=== PATIENT | female | born 1945 | race Caucasian/White ===

== ENCOUNTER 2017-08-27 01:35 | Inpatient (IN) | payer MEDICARE ==
[~2017-08-27] VITALS: Ht 167.6 cm; Wt 79.7 kg
[2017-08-27 02:10] LABS: BASOPHILS 0.5 % (0-2); EOSINOPHILS 7.6 % (0-7); HEMATOCRIT 45.1 % (36.0-48.0); HEMOGLOBIN 15.7 g/dL (12-16); IMMATURE GRANULOCYTES 0.3 % (0-5); LYMPHOCYTES 33.3 % (15-50); MCH 32.2 pg (26.0-34.0); MCHC 34.8 g/dL (31.0-37.0); MCV 92.6 fL (80.0-100.0); MEAN PLATELET VOLUME 9.5 fL (7.4-10.4); MONOCYTES 11.3 % (2-11); PLATELET COUNT 322 10x3/uL (130-400); RBC 4.87 10x6/uL (4.00-5.40); RDW 13.3 % (11.5-14.5); WBC 11.2 10x3/uL (4.8-10.8)
[2017-08-27 02:28] LABS: ALBUMIN 3.4 g/dL (3.4-5.0); ALKALINE PHOSPHATASE 82 U/L (46-116); ALT (SGPT) 19 U/L (10-68); CALC OSMOLALITY 260 mosm/kg (275-300); CALCIUM 8.7 mg/dL (8.5-10.1); CARBON DIOXIDE 26.6 mmol/L (21.0-32.0); CHLORIDE - SERUM 97 mmol/L (98-107); CREATININE - SERUM 0.6 mg/dL (0.6-1.3); GLUCOSE 90 mg/dL (74-106); PROTEIN - SERUM 7.8 g/dL (6.4-8.2); SODIUM 130 mmol/L (136-145); TROPONIN-I < 0.017 ng/mL (0.000-0.060); UREA NITROGEN 13 mg/dL (7-18); eGFR NON AFRICAN AMERICAN > 90 mL/min (90-120)
[2017-08-27] MEDS ORDERED: MYSOLINE 50 MG50 MG PO (07:50)
[2017-08-27] MEDS ORDERED: CELEXA40 MG PO (07:54)
[2017-08-27] MEDS ORDERED: AMBIEN10 MG PO (07:56)
[2017-08-27] MEDS ORDERED: KLONOPIN1 MG PO (07:58)
[2017-08-27] MEDS ORDERED: TESSALON PERLE100 MG PO (08:00)
[2017-08-27] MEDS ORDERED: HYDROCODONE-APA1 TAB PO (08:01)
[2017-08-27] MEDS ORDERED: MUCINEX600 MG PO (08:03)
[2017-08-27] MEDS ORDERED: PHENERGAN25 M1 PO (08:07)
[2017-08-27 08:44] VITALS: BP 125/72; BMI 28.0
[2017-08-27 12:29] VITALS: BP 151/83
[2017-08-27 15:09] VITALS: BP 108/68
[2017-08-27 15:16] VITALS: Ht 167.6 cm; Wt 79.7 kg
[2017-08-27 20:00] VITALS: BP 125/61
[2017-08-28 04:00] VITALS: BP 128/65
[2017-08-28 05:59] LABS: BASOPHILS 0.1 % (0-2); EOSINOPHILS 0.1 % (0-7); HEMATOCRIT 38.2 % (36.0-48.0); IMMATURE GRANULOCYTES 0.4 % (0-5); LYMPHOCYTES 10.4 % (15-50); MCH 31.6 pg (26.0-34.0); MCV 92.7 fL (80.0-100.0); MEAN PLATELET VOLUME 9.4 fL (7.4-10.4); MONOCYTES 7.3 % (2-11); NEUTROPHILS 81.7 % (40-80); PLATELET COUNT 263 10x3/uL (130-400); RBC 4.12 10x6/uL (4.00-5.40); RDW 13.4 % (11.5-14.5)
[2017-08-28 06:02] LABS: WBC 15.8 10x3/uL (4.8-10.8)
[2017-08-28 06:22] LABS: ANION GAP 15.3 mmol/L (8-16); CALCIUM 8.3 mg/dL (8.5-10.1); POTASSIUM - SERUM 4.2 mmol/L (3.5-5.1)
[2017-08-28 06:23] LABS: CARBON DIOXIDE 19.9 mmol/L (21.0-32.0); CREATININE - SERUM 0.8 mg/dL (0.6-1.3)
[2017-08-28 09:19] VITALS: BP 126/64
[2017-08-28 13:05] VITALS: BP 144/62
[2017-08-28 16:04] VITALS: BP 131/54
[2017-08-28 20:00] VITALS: BP 133/67
[2017-08-29 04:00] VITALS: BP 109/67
[2017-08-29 05:36] LABS: BASOPHILS 0.1 % (0-2); EOSINOPHILS 0.3 % (0-7); HEMATOCRIT 38.4 % (36.0-48.0); IMMATURE GRANULOCYTES 0.3 % (0-5); LYMPHOCYTES 17.1 % (15-50); MCH 31.2 pg (26.0-34.0); MCHC 33.9 g/dL (31.0-37.0); MCV 92.1 fL (80.0-100.0); MEAN PLATELET VOLUME 9.5 fL (7.4-10.4); MONOCYTES 5.9 % (2-11); NEUTROPHILS 76.3 % (40-80); PLATELET COUNT 267 10x3/uL (130-400); RBC 4.17 10x6/uL (4.00-5.40); RDW 13.6 % (11.5-14.5); WBC 16.1 10x3/uL (4.8-10.8)
[2017-08-29 05:52] LABS: ANION GAP 16.1 mmol/L (8-16); CALCIUM 8.6 mg/dL (8.5-10.1); CARBON DIOXIDE 22.8 mmol/L (21.0-32.0); CREATININE - SERUM 0.8 mg/dL (0.6-1.3); POTASSIUM - SERUM 3.9 mmol/L (3.5-5.1)
[2017-08-29 10:15] VITALS: BP 137/72
[2017-08-29 12:35] VITALS: BP 146/68
[2017-08-29 16:19] VITALS: BP 106/63
[2017-08-29 20:00] VITALS: BP 118/62
[2017-08-30 04:00] VITALS: BP 127/71
[2017-08-30 04:03] LABS: BASOPHILS 0.2 % (0-2); EOSINOPHILS 1.6 % (0-7); HEMOGLOBIN 12.2 g/dL (12-16); IMMATURE GRANULOCYTES 0.3 % (0-5); LYMPHOCYTES 35.8 % (15-50); MCH 31.2 pg (26.0-34.0); MCHC 33.9 g/dL (31.0-37.0); MCV 92.1 fL (80.0-100.0); MEAN PLATELET VOLUME 8.9 fL (7.4-10.4); MONOCYTES 9.1 % (2-11); PLATELET COUNT 236 10x3/uL (130-400); RBC 3.91 10x6/uL (4.00-5.40); RDW 13.7 % (11.5-14.5); WBC 12.4 10x3/uL (4.8-10.8)
[2017-08-30 04:10] LABS: ANION GAP 10.9 mmol/L (8-16); CALCIUM 8.1 mg/dL (8.5-10.1); CARBON DIOXIDE 28.4 mmol/L (21.0-32.0); CREATININE - SERUM 0.8 mg/dL (0.6-1.3)
[2017-08-30 04:15] LABS: POTASSIUM - SERUM 3.3 mmol/L (3.5-5.1)
[2017-08-30 09:09] VITALS: BP 140/83
[2017-08-30 14:53] VITALS: BP 161/72
[2017-08-30] MEDS ORDERED: TUSSIONEX PENN473 ML PO (15:03)
[2017-08-30] MEDS ORDERED: PREDNISONE10 MG PO (15:43)
[2017-08-30] MEDS ORDERED: LEVAQUIN500 MG PO (15:44)
[2017-08-30 16:39] VITALS: BP 130/85
== END 2017-08-30 17:53 | disposition home or self-care (01) | DRG 202 ==
LOC: D.ER 01:35 → D.EDHOLD 02:30 → D.M2 02:30
PROVIDERS: Emergency Medicine; Family Medicine Adult Medicine
DX: J20.9 Acute bronchitis, unspecified (principal); J44.1 Chronic obstructive pulmonary disease with (acute) exacerbation; J44.0 Chronic obstructive pulmonary disease with (acute) lower respiratory infection; G62.9 Polyneuropathy, unspecified

== ENCOUNTER 2017-09-23 18:13 | Inpatient (IN) | payer MEDICARE ==
[~2017-09-23] VITALS: Ht 167.6 cm; Wt 80.8 kg
[~2017-09-23 18:13] MED LIST: AMBIEN10 MG PO; CELEXA40 MG PO; HYDROCODONE-APA1 TAB PO; KLONOPIN1 MG PO; LEVAQUIN500 MG PO; MUCINEX600 MG PO; MYSOLINE 50 MG50 MG PO; PHENERGAN25 M1 PO; PREDNISONE10 MG PO; TESSALON PERLE100 MG PO; TUSSIONEX PENN473 ML PO
[2017-09-23 18:59] LABS: BASOPHILS 0.8 % (0-2); EOSINOPHILS 10.9 % (0-7); HEMATOCRIT 42.6 % (36.0-48.0); HEMOGLOBIN 14.8 g/dL (12-16); IMMATURE GRANULOCYTES 0.3 % (0-5); LYMPHOCYTES 37.1 % (15-50); MCH 32.5 pg (26.0-34.0); MCHC 34.7 g/dL (31.0-37.0); MCV 93.4 fL (80.0-100.0); MEAN PLATELET VOLUME 9.2 fL (7.4-10.4); MONOCYTES 9.6 % (2-11); NEUTROPHILS 41.3 % (40-80); PLATELET COUNT 265 10x3/uL (130-400); RBC 4.56 10x6/uL (4.00-5.40); RDW 13.9 % (11.5-14.5); WBC 7.5 10x3/uL (4.8-10.8)
[2017-09-23 19:15] LABS: ALBUMIN 3.5 g/dL (3.4-5.0); ALKALINE PHOSPHATASE 67 U/L (46-116); ALT (SGPT) 19 U/L (10-68); BILIRUBIN - TOTAL 0.38 mg/dL (0.2-1.3); CALC OSMOLALITY 271 mosm/kg (275-300); CALCIUM 8.8 mg/dL (8.5-10.1); CARBON DIOXIDE 26.6 mmol/L (21.0-32.0); CHLORIDE - SERUM 102 mmol/L (98-107); CREATININE - SERUM 0.7 mg/dL (0.6-1.3); GLUCOSE 91 mg/dL (74-106); POTASSIUM - SERUM 4.2 mmol/L (3.5-5.1); PROTEIN - SERUM 7.4 g/dL (6.4-8.2); SODIUM 137 mmol/L (136-145); UREA NITROGEN 6 mg/dL (7-18); eGFR NON AFRICAN AMERICAN 87 mL/min (90-120)
[2017-09-23 19:22] LABS: PRO BNP 139 pg/mL (0-125)
[2017-09-23 19:23] LABS: TROPONIN-I < 0.017 ng/mL (0.000-0.060)
[2017-09-24] MEDS ORDERED: INDERAL10 MG PO (02:55)
[2017-09-24 03:59] VITALS: BP 153/83; BMI 28.3
[2017-09-24 08:36] VITALS: BP 121/70
[2017-09-24 11:52] VITALS: BP 131/73
[2017-09-24 13:12] VITALS: Ht 167.6 cm; Wt 80.8 kg
[2017-09-24 15:40] VITALS: BP 138/76
[2017-09-24 20:37] VITALS: BP 107/57
[2017-09-25 00:46] VITALS: BP 107/57; BP 122/77
[2017-09-25 05:50] VITALS: BP 111/67
[2017-09-25 06:34] LABS: BASOPHILS 0.1 % (0-2); EOSINOPHILS 0.2 % (0-7); HEMATOCRIT 37.9 % (36.0-48.0); HEMOGLOBIN 12.8 g/dL (12-16); IMMATURE GRANULOCYTES 0.3 % (0-5); MCH 31.6 pg (26.0-34.0); MCHC 33.8 g/dL (31.0-37.0); MCV 93.6 fL (80.0-100.0); MEAN PLATELET VOLUME 9.5 fL (7.4-10.4); MONOCYTES 4.2 % (2-11); NEUTROPHILS 85.2 % (40-80); PLATELET COUNT 304 10x3/uL (130-400); RBC 4.05 10x6/uL (4.00-5.40)
[2017-09-25 06:39] LABS: WBC 11.9 10x3/uL (4.8-10.8)
[2017-09-25 07:12] LABS: ANION GAP 12.6 mmol/L (8-16); BILIRUBIN - TOTAL 0.2 mg/dL (0.2-1.3); CALCIUM 8.9 mg/dL (8.5-10.1); CREATININE - SERUM 0.8 mg/dL (0.6-1.3); POTASSIUM - SERUM 4.6 mmol/L (3.5-5.1); PROTEIN - SERUM 6.6 g/dL (6.4-8.2)
[2017-09-25 07:55] VITALS: BP 127/75
[2017-09-25 11:37] VITALS: BP 141/80
[2017-09-25 15:35] VITALS: BP 134/74
[2017-09-25 19:00] VITALS: BP 127/68
[2017-09-26] VITALS: BP 118/77
[2017-09-26 04:00] VITALS: BP 122/72
[2017-09-26 06:33] LABS: BASOPHILS 0.1 % (0-2); EOSINOPHILS 0.1 % (0-7); HEMATOCRIT 37.3 % (36.0-48.0); HEMOGLOBIN 12.4 g/dL (12-16); IMMATURE GRANULOCYTES 0.3 % (0-5); LYMPHOCYTES 12.5 % (15-50); MCH 31.2 pg (26.0-34.0); MCHC 33.2 g/dL (31.0-37.0); MEAN PLATELET VOLUME 9.5 fL (7.4-10.4); MONOCYTES 5.7 % (2-11); NEUTROPHILS 81.3 % (40-80); PLATELET COUNT 271 10x3/uL (130-400); RBC 3.97 10x6/uL (4.00-5.40); RDW 14.2 % (11.5-14.5); WBC 11.8 10x3/uL (4.8-10.8)
[2017-09-26 06:54] LABS: ALBUMIN 2.9 g/dL (3.4-5.0); ALKALINE PHOSPHATASE 59 U/L (46-116); ALT (SGPT) 17 U/L (10-68); BILIRUBIN - TOTAL 0.18 mg/dL (0.2-1.3); CALC OSMOLALITY 271 mosm/kg (275-300); CALCIUM 8.5 mg/dL (8.5-10.1); CHLORIDE - SERUM 101 mmol/L (98-107); CREATININE - SERUM 0.7 mg/dL (0.6-1.3); GLUCOSE 123 mg/dL (74-106); POTASSIUM - SERUM 4.4 mmol/L (3.5-5.1); PROTEIN - SERUM 6.4 g/dL (6.4-8.2); SODIUM 135 mmol/L (136-145); UREA NITROGEN 15 mg/dL (7-18); eGFR NON AFRICAN AMERICAN 87 mL/min (90-120)
[2017-09-26 08:52] VITALS: BP 134/72
[2017-09-26 10:53] LABS: IMMUNOGLOBULIN A 225 mg/dL (64-422); IMMUNOGLOBULIN G 644 mg/dL (700-1600)
[2017-09-26 11:35] VITALS: BP 131/76
[2017-09-26 16:21] VITALS: BP 139/77
[2017-09-26 20:59] VITALS: BP 131/70
[2017-09-27 02:21] VITALS: BP 128/79
[2017-09-27 05:54] LABS: BASOPHILS 0.1 % (0-2); EOSINOPHILS 0.1 % (0-7); HEMATOCRIT 36.4 % (36.0-48.0); HEMOGLOBIN 12.2 g/dL (12-16); IMMATURE GRANULOCYTES 0.6 % (0-5); LYMPHOCYTES 20.3 % (15-50); MCH 31.6 pg (26.0-34.0); MCHC 33.5 g/dL (31.0-37.0); MCV 94.3 fL (80.0-100.0); MEAN PLATELET VOLUME 9.3 fL (7.4-10.4); MONOCYTES 8.1 % (2-11); NEUTROPHILS 70.8 % (40-80); PLATELET COUNT 251 10x3/uL (130-400); RBC 3.86 10x6/uL (4.00-5.40); RDW 14.4 % (11.5-14.5); WBC 9.7 10x3/uL (4.8-10.8)
[2017-09-27 06:13] VITALS: BP 105/68
[2017-09-27 06:13] LABS: ALBUMIN 2.6 g/dL (3.4-5.0); BILIRUBIN - TOTAL 0.2 mg/dL (0.2-1.3); CALCIUM 8.5 mg/dL (8.5-10.1); CARBON DIOXIDE 29.3 mmol/L (21.0-32.0); CREATININE - SERUM 0.8 mg/dL (0.6-1.3); POTASSIUM - SERUM 4.3 mmol/L (3.5-5.1); PROTEIN - SERUM 5.9 g/dL (6.4-8.2)
[2017-09-27 08:15] VITALS: BP 137/76
[2017-09-27 11:53] VITALS: BP 132/81
[2017-09-27 15:46] VITALS: BP 130/73
[2017-09-27 21:22] VITALS: BP 132/67
[2017-09-28 01:10] VITALS: BP 121/67
[2017-09-28 04:41] LABS: BASOPHILS 0.2 % (0-2); EOSINOPHILS 0.4 % (0-7); HEMATOCRIT 36.1 % (36.0-48.0); HEMOGLOBIN 12.3 g/dL (12-16); IMMATURE GRANULOCYTES 1.4 % (0-5); LYMPHOCYTES 23.3 % (15-50); MCH 31.9 pg (26.0-34.0); MCHC 34.1 g/dL (31.0-37.0); MCV 93.5 fL (80.0-100.0); MEAN PLATELET VOLUME 9.3 fL (7.4-10.4); MONOCYTES 8.9 % (2-11); NEUTROPHILS 65.8 % (40-80); PLATELET COUNT 258 10x3/uL (130-400); RBC 3.86 10x6/uL (4.00-5.40); RDW 14.2 % (11.5-14.5); WBC 10.3 10x3/uL (4.8-10.8)
[2017-09-28 05:01] LABS: ALBUMIN 2.6 g/dL (3.4-5.0); BILIRUBIN - TOTAL 0.2 mg/dL (0.2-1.3); CALCIUM 8.4 mg/dL (8.5-10.1); CARBON DIOXIDE 29.4 mmol/L (21.0-32.0); CREATININE - SERUM 0.8 mg/dL (0.6-1.3); PROTEIN - SERUM 5.9 g/dL (6.4-8.2)
[2017-09-28 05:09] VITALS: BP 129/75
[2017-09-28 05:15] LABS: ANION GAP 8.9 mmol/L (8-16); POTASSIUM - SERUM 4.3 mmol/L (3.5-5.1)
[2017-09-28 09:42] VITALS: BP 116/67
[2017-09-28 12:39] VITALS: BP 124/69
[2017-09-28] MEDS ORDERED: NICODERM C1 PATCH .3 TRANSDERM (16:40)
[2017-09-28 16:41] VITALS: BP 120/60
[2017-09-28] MEDS ORDERED: PREDNISONE20 MG PO (16:42)
[2017-09-28] MEDS ORDERED: FLUTICASONE PRO16 GM NASAL (16:44)
[2017-09-28] MEDS ORDERED: LEVAQUIN500 MG PO (16:45)
[2017-10-02 07:34] LABS: IMMUNOGLOBULIN E 33 IU/mL (0-100)
== END 2017-09-28 18:30 | disposition home or self-care (01) | DRG 189 ==
LOC: D.ER 18:13 → D.M2 09-24 00:10 → D.EDHOLD 09-24 00:10 → D.M2 09-24 01:22
PROVIDERS: Family Medicine; Internal Medicine Pulmonary Disease
DX: J96.21 Acute and chronic respiratory failure with hypoxia (principal); J44.1 Chronic obstructive pulmonary disease with (acute) exacerbation; J44.0 Chronic obstructive pulmonary disease with (acute) lower respiratory infection; F17.203 Nicotine dependence unspecified, with withdrawal; J20.9 Acute bronchitis, unspecified; K21.9 Gastro-esophageal reflux disease without esophagitis; J32.9 Chronic sinusitis, unspecified; J30.9 Allergic rhinitis, unspecified; E78.5 Hyperlipidemia, unspecified; K58.9 Irritable bowel syndrome, unspecified; G60.3 Idiopathic progressive neuropathy; Z86.73 Personal history of transient ischemic attack (TIA), and cerebral infarction without residual deficits

== ENCOUNTER → 2018-02-09 09:58 | Outpatient (CLI) | payer MEDICARE ==
[2017-09-24 13:12] VITALS: BMI 28.2
[~2018-02-09 09:58] MED LIST changes: +ANORO ELLIPTA1 EACH INH; +CYCLOBENZAPRINE10 MG PO; +ELLIPTA; +FLUTICASONE PRO16 GM NASAL; +IPRAT-ALBUT 0.5-3 ML UPD; +NICODERM C1 PATCH .3 TRANSDERM; +PREDNISONE20 MG PO; +PROPRANOLOL HCL20 MG PO; +SINGULAIR10 MG PO; +TRELEGY AER ELL
== END | disposition home or self-care (01) ==
LOC: D.RT 02-02 13:00
DX: J44.9 Chronic obstructive pulmonary disease, unspecified (principal)

== ENCOUNTER 2018-02-25 12:17 | Inpatient (IN) | payer MEDICARE ==
[~2018-02-25] VITALS: Ht 167.6 cm; Wt 79.5 kg
[~2018-02-25 12:17] MED LIST changes: -ANORO ELLIPTA1 EACH INH; -CYCLOBENZAPRINE10 MG PO; -ELLIPTA; -IPRAT-ALBUT 0.5-3 ML UPD; -SINGULAIR10 MG PO; -TRELEGY AER ELL
[2018-02-25] MEDS ORDERED: SINGULAIR10 MG PO (13:06)
[2018-02-25] MEDS ORDERED: ELLIPTA (13:07)
[2018-02-25 14:03] LABS: BASOPHILS 0.4 % (0-2); EOSINOPHILS 3.5 % (0-7); HEMATOCRIT 41.1 % (36.0-48.0); IMMATURE GRANULOCYTES 0.2 % (0-5); LYMPHOCYTES 21.9 % (15-50); MCH 31.9 pg (26.0-34.0); MCHC 34.1 g/dL (31.0-37.0); MCV 93.6 fL (80.0-100.0); MEAN PLATELET VOLUME 9.6 fL (7.4-10.4); MONOCYTES 8.8 % (2-11); NEUTROPHILS 65.2 % (40-80); PLATELET COUNT 283 10x3/uL (130-400); RBC 4.39 10x6/uL (4.00-5.40); RDW 13.5 % (11.5-14.5); WBC 11.2 10x3/uL (4.8-10.8)
[2018-02-25 14:26] LABS: ALBUMIN 3.4 g/dL (3.4-5.0); ANION GAP 14.2 mmol/L (8-16); BILIRUBIN - TOTAL 0.4 mg/dL (0.2-1.3); CARBON DIOXIDE 27.9 mmol/L (21.0-32.0); CREATININE - SERUM 0.8 mg/dL (0.6-1.3); POTASSIUM - SERUM 5.1 mmol/L (3.5-5.1); PROTEIN - SERUM 6.7 g/dL (6.4-8.2)
[2018-02-25 14:41] LABS: APPEARANCE CLEAR (CLEAR); BILIRUBIN NEGATIVE (NEGATIVE); COLOR YELLOW (YELLOW); GLUCOSE NEGATIVE (NEGATIVE); KETONE NEGATIVE (NEGATIVE); NITRITE NEGATIVE (NEGATIVE); PROTEIN NEGATIVE (NEGATIVE); UROBILINOGEN NORMAL (NORMAL)
[2018-02-25 14:42] LABS: BACTERIA FEW /hpf (NONE SEEN); EPITHELIAL CELLS 0-5 /hpf (0-5); MUCUS <1+ /lpf (NONE SEEN); RED CELLS - URINE 0-5 /hpf (0-5); WHITE CELLS - URINE 0-5 /hpf (0-5)
[2018-02-25 19:30] LABS: HEMATOCRIT 38.3 % (36.0-48.0)
[2018-02-25 20:00] VITALS: BP 125/74
[2018-02-25] MEDS ORDERED: ANORO ELLIPTA1 EACH INH (21:13)
[2018-02-25] MEDS ORDERED: IPRAT-ALBUT 0.5-3 ML UPD (21:18)
[2018-02-25] MEDS ORDERED: TRELEGY AER ELL (22:05)
[2018-02-25] MEDS ORDERED: CYCLOBENZAPRINE10 MG PO (22:55)
[2018-02-26] VITALS (7 sets, daily range): BP systolic 100–125; BP diastolic 47–74; Ht 167.6 cm; Wt 79.5 kg
[2018-02-26 05:37] LABS: BASOPHILS 0.3 % (0-2); HEMATOCRIT 36.3 % (36.0-48.0); HEMOGLOBIN 12.1 g/dL (12-16); IMMATURE GRANULOCYTES 0.2 % (0-5); MCH 31.3 pg (26.0-34.0); MCHC 33.3 g/dL (31.0-37.0); MCV 93.8 fL (80.0-100.0); MEAN PLATELET VOLUME 9.4 fL (7.4-10.4); MONOCYTES 7.8 % (2-11); NEUTROPHILS 72.7 % (40-80); PLATELET COUNT 239 10x3/uL (130-400); RBC 3.87 10x6/uL (4.00-5.40); RDW 13.6 % (11.5-14.5); WBC 10.1 10x3/uL (4.8-10.8)
[2018-02-26 06:23] LABS: ALBUMIN 2.8 g/dL (3.4-5.0); ALKALINE PHOSPHATASE 68 U/L (46-116); ALT (SGPT) 23 U/L (10-68); BILIRUBIN - TOTAL 0.29 mg/dL (0.2-1.3); CALC OSMOLALITY 270 mosm/kg (275-300); CALCIUM 8.2 mg/dL (8.5-10.1); CARBON DIOXIDE 26.9 mmol/L (21.0-32.0); CHLORIDE - SERUM 102 mmol/L (98-107); CREATININE - SERUM 0.6 mg/dL (0.6-1.3); GLUCOSE 120 mg/dL (74-106); PROTEIN - SERUM 6.3 g/dL (6.4-8.2); SODIUM 136 mmol/L (136-145); UREA NITROGEN 8 mg/dL (7-18); eGFR NON AFRICAN AMERICAN > 90 mL/min (90-120)
[2018-02-26 06:27] LABS: POTASSIUM - SERUM 4.3 mmol/L (3.5-5.1)
[2018-02-26 20:45] LABS: HEMATOCRIT 35.6 % (36.0-48.0); HEMOGLOBIN 11.8 g/dL (12-16)
[2018-02-27] VITALS: BP 99/50
[2018-02-27 04:00] VITALS: BP 91/45
[2018-02-27 05:33] LABS: BASOPHILS 0.3 % (0-2); EOSINOPHILS 2.9 % (0-7); HEMATOCRIT 33.6 % (36.0-48.0); HEMOGLOBIN 11.2 g/dL (12-16); IMMATURE GRANULOCYTES 0.3 % (0-5); LYMPHOCYTES 30.7 % (15-50); MCH 31.6 pg (26.0-34.0); MCHC 33.3 g/dL (31.0-37.0); MCV 94.9 fL (80.0-100.0); MEAN PLATELET VOLUME 9.4 fL (7.4-10.4); MONOCYTES 12.2 % (2-11); NEUTROPHILS 53.6 % (40-80); PLATELET COUNT 204 10x3/uL (130-400); RBC 3.54 10x6/uL (4.00-5.40); RDW 13.8 % (11.5-14.5)
[2018-02-27 05:37] LABS: WBC 7.3 10x3/uL (4.8-10.8)
[2018-02-27 05:54] LABS: ALBUMIN 2.3 g/dL (3.4-5.0); ALKALINE PHOSPHATASE 57 U/L (46-116); ALT (SGPT) 20 U/L (10-68); BILIRUBIN - TOTAL 0.24 mg/dL (0.2-1.3); CALC OSMOLALITY 275 mosm/kg (275-300); CALCIUM 7.8 mg/dL (8.5-10.1); CARBON DIOXIDE 26.7 mmol/L (21.0-32.0); CHLORIDE - SERUM 105 mmol/L (98-107); CREATININE - SERUM 0.7 mg/dL (0.6-1.3); GLUCOSE 94 mg/dL (74-106); PROTEIN - SERUM 5.3 g/dL (6.4-8.2); SODIUM 139 mmol/L (136-145); UREA NITROGEN 8 mg/dL (7-18); eGFR NON AFRICAN AMERICAN 87 mL/min (90-120)
[2018-02-27 07:37] VITALS: BP 92/48
[2018-02-27 10:57] VITALS: BP 90/55
[2018-02-27 13:36] LABS: HEMATOCRIT 34.8 % (36.0-48.0); HEMOGLOBIN 11.6 g/dL (12-16)
[2018-02-27 16:36] VITALS: BP 104/36
[2018-02-27 19:45] LABS: HEMOGLOBIN 11.2 g/dL (12-16)
[2018-02-27 19:52] VITALS: BP 111/51
[2018-02-28 00:32] LABS: HEMATOCRIT 33.5 % (36.0-48.0); HEMOGLOBIN 11.1 g/dL (12-16)
[2018-02-28 05:26] VITALS: BP 126/53
[2018-02-28 07:12] LABS: BASOPHILS 0.1 % (0-2); EOSINOPHILS 4.3 % (0-7); HEMATOCRIT 35.2 % (36.0-48.0); HEMOGLOBIN 11.9 g/dL (12-16); IMMATURE GRANULOCYTES 0.3 % (0-5); MCH 31.6 pg (26.0-34.0); MCHC 33.8 g/dL (31.0-37.0); MCV 93.6 fL (80.0-100.0); MEAN PLATELET VOLUME 9.3 fL (7.4-10.4); MONOCYTES 9.9 % (2-11); NEUTROPHILS 55.4 % (40-80); PLATELET COUNT 225 10x3/uL (130-400); RBC 3.76 10x6/uL (4.00-5.40); RDW 13.7 % (11.5-14.5); WBC 7.6 10x3/uL (4.8-10.8)
[2018-02-28 07:22] LABS: ALBUMIN 2.5 g/dL (3.4-5.0); ANION GAP 11.8 mmol/L (8-16); BILIRUBIN - TOTAL 0.26 mg/dL (0.2-1.3); CARBON DIOXIDE 26.8 mmol/L (21.0-32.0); CREATININE - SERUM 0.8 mg/dL (0.6-1.3); POTASSIUM - SERUM 3.6 mmol/L (3.5-5.1); PROTEIN - SERUM 5.7 g/dL (6.4-8.2)
[2018-02-28 07:57] VITALS: BP 140/71
[2018-02-28 11:30] VITALS: BP 103/68
[2018-02-28 12:25] LABS: HEMATOCRIT 33.7 % (36.0-48.0); HEMOGLOBIN 11.3 g/dL (12-16)
[2018-02-28 15:55] VITALS: BP 106/58
[2018-02-28 19:54] LABS: HEMATOCRIT 36.1 % (36.0-48.0)
[2018-02-28 21:06] VITALS: BP 119/67
[2018-03-01 05:30] LABS: BASOPHILS 0.4 % (0-2); EOSINOPHILS 4.3 % (0-7); HEMOGLOBIN 9.7 g/dL (12-16); IMMATURE GRANULOCYTES 0.2 % (0-5); LYMPHOCYTES 34.4 % (15-50); MCH 31.4 pg (26.0-34.0); MCHC 33.4 g/dL (31.0-37.0); MCV 93.9 fL (80.0-100.0); MEAN PLATELET VOLUME 10.3 fL (7.4-10.4); MONOCYTES 7.7 % (2-11); RBC 3.09 10x6/uL (4.00-5.40); RDW 13.9 % (11.5-14.5)
[2018-03-01 05:34] LABS: PLATELET COUNT 60 10x3/uL (130-400); WBC 5.1 10x3/uL (4.8-10.8)
[2018-03-01 05:39] VITALS: BP 91/59
[2018-03-01 05:55] LABS: ALBUMIN 2.4 g/dL (3.4-5.0); ALKALINE PHOSPHATASE 55 U/L (46-116); BILIRUBIN - TOTAL 0.16 mg/dL (0.2-1.3); CALC OSMOLALITY 275 mosm/kg (275-300); CALCIUM 7.9 mg/dL (8.5-10.1); CARBON DIOXIDE 20.2 mmol/L (21.0-32.0); CHLORIDE - SERUM 106 mmol/L (98-107); GLUCOSE 95 mg/dL (74-106); SODIUM 139 mmol/L (136-145); UREA NITROGEN 8 mg/dL (7-18)
[2018-03-01 06:11] LABS: ALT (SGPT) 29 U/L (10-68); CREATININE - SERUM 0.5 mg/dL (0.6-1.3); eGFR NON AFRICAN AMERICAN > 90 mL/min (90-120)
[2018-03-01 07:22] VITALS: BP 127/76
[2018-03-01 11:10] VITALS: BP 131/66
[2018-03-01 13:00] LABS: HEMATOCRIT 38.8 % (36.0-48.0)
[2018-03-01 13:04] LABS: HEMATOCRIT 33.4 % (36.0-48.0); HEMOGLOBIN 11.7 g/dL (12-16)
[2018-03-01 15:25] VITALS: BP 101/62
[2018-03-01 20:40] VITALS: BP 97/61
[2018-03-02 07:25] VITALS: BP 127/65
[2018-03-02 08:11] LABS: BASOPHILS 0.2 % (0-2); HEMATOCRIT 36.1 % (36.0-48.0); HEMOGLOBIN 12.4 g/dL (12-16); IMMATURE GRANULOCYTES 0.2 % (0-5); LYMPHOCYTES 24.1 % (15-50); MCH 31.5 pg (26.0-34.0); MCHC 34.3 g/dL (31.0-37.0); MCV 91.6 fL (80.0-100.0); MEAN PLATELET VOLUME 9.6 fL (7.4-10.4); MONOCYTES 9.3 % (2-11); NEUTROPHILS 61.2 % (40-80); PLATELET COUNT 241 10x3/uL (130-400); RBC 3.94 10x6/uL (4.00-5.40); RDW 13.6 % (11.5-14.5); WBC 8.4 10x3/uL (4.8-10.8)
[2018-03-02 08:16] LABS: APTT 27.4 SECONDS (22.8-39.4); D-DIMER-QUANTITATIVE 1.67 ug/mLFEU (0.20-0.54); INR 1.11 (0.85-1.17); PROTIME 13.9 SECONDS (11.6-15.0)
[2018-03-02 08:19] LABS: ALBUMIN 2.8 g/dL (3.4-5.0); ANION GAP 10.4 mmol/L (8-16); BILIRUBIN - TOTAL 0.25 mg/dL (0.2-1.3); CALCIUM 8.6 mg/dL (8.5-10.1); CARBON DIOXIDE 28.2 mmol/L (21.0-32.0); CREATININE - SERUM 0.8 mg/dL (0.6-1.3); POTASSIUM - SERUM 3.6 mmol/L (3.5-5.1); PROTEIN - SERUM 6.1 g/dL (6.4-8.2); T4 THYROXINE 9.1 ug/dL (4.7-13.3)
[2018-03-02 11:24] VITALS: BP 120/57
[2018-03-02] MEDS ORDERED: FLAGYL500 MG PO (14:09)
[2018-03-02] MEDS ORDERED: LEVAQUIN750 MG PO (14:09)
== END 2018-03-02 16:43 | disposition home or self-care (01) | DRG 394 ==
LOC: D.ER 12:17 → D.EDHOLD 17:30 → D.M3 17:30
PROVIDERS: Family Medicine; Internal Medicine Gastroenterology; Internal Medicine Pulmonary Disease
DX: K55.9 Vascular disorder of intestine, unspecified (principal); A09 Infectious gastroenteritis and colitis, unspecified; F17.213 Nicotine dependence, cigarettes, with withdrawal; D80.3 Selective deficiency of immunoglobulin G [IgG] subclasses; J98.11 Atelectasis; J84.9 Interstitial pulmonary disease, unspecified; K92.1 Melena; J44.9 Chronic obstructive pulmonary disease, unspecified; K21.9 Gastro-esophageal reflux disease without esophagitis; E78.5 Hyperlipidemia, unspecified; D69.6 Thrombocytopenia, unspecified; K57.90 Diverticulosis of intestine, part unspecified, without perforation or abscess without bleeding; J30.9 Allergic rhinitis, unspecified; Z86.73 Personal history of transient ischemic attack (TIA), and cerebral infarction without residual deficits

== ENCOUNTER 2018-08-30 23:39 | Inpatient (IN) | payer MEDICARE ==
[~2018-08-30] VITALS: Ht 167.6 cm; Wt 85.5 kg
[~2018-08-30 23:39] MED LIST changes: +ANORO ELLIPTA1 EACH INH; +CYCLOBENZAPRINE10 MG PO; +ELLIPTA; +FLAGYL500 MG PO; +IPRAT-ALBUT 0.5-3 ML UPD; +LEVAQUIN750 MG PO; +SINGULAIR10 MG PO; +TRELEGY AER ELL
[2018-08-31] VITALS (10 sets, daily range): BP systolic 88–160; BP diastolic 52–115; Ht 167.6 cm; Wt 85.5 kg
[2018-08-31 00:49] LABS: BASOPHILS 0 % (0-2); EOSINOPHILS 0.4 % (0-7); HEMATOCRIT 44.6 % (36.0-48.0); IMMATURE GRANULOCYTES 0.6 % (0-5); LYMPHOCYTES 2.3 % (15-50); MCH 31.6 pg (26.0-34.0); MCHC 33.6 g/dL (31.0-37.0); MCV 93.9 fL (80.0-100.0); MEAN PLATELET VOLUME 9.6 fL (7.4-10.4); MONOCYTES 0.3 % (2-11); NEUTROPHILS 96.4 % (40-80); PLATELET COUNT 217 10x3/uL (130-400); RBC 4.75 10x6/uL (4.00-5.40); RDW 13.9 % (11.5-14.5); WBC 6.9 10x3/uL (4.8-10.8)
[2018-08-31 00:52] LABS: APPEARANCE HAZY (CLEAR); COLOR YELLOW (YELLOW)
[2018-08-31 00:53] LABS: BACTERIA MODERATE /hpf (NONE SEEN); BILIRUBIN NEGATIVE (NEGATIVE); EPITHELIAL CELLS 0-5 /hpf (0-5); GLUCOSE NEGATIVE (NEGATIVE); HYALINE CAST RARE /lpf (NONE SEEN); KETONE NEGATIVE (NEGATIVE); MUCUS <1+ /lpf (NONE SEEN); NITRITE POSITIVE (NEGATIVE); PROTEIN NEGATIVE (NEGATIVE); UROBILINOGEN NORMAL (NORMAL)
[2018-08-31 01:21] LABS: ALBUMIN 3.6 g/dL (3.4-5.0); ALKALINE PHOSPHATASE 169 U/L (46-116); ALT (SGPT) 48 U/L (10-68); AMYLASE - SERUM 29 U/L (25-115); BILIRUBIN - TOTAL 0.84 mg/dL (0.2-1.3); CALC OSMOLALITY 272 mosm/kg (275-300); CALCIUM 8.7 mg/dL (8.5-10.1); CARBON DIOXIDE 27.6 mmol/L (21.0-32.0); CHLORIDE - SERUM 99 mmol/L (98-107); GLUCOSE 105 mg/dL (74-106); LIPASE 67 U/L (73-393); POTASSIUM - SERUM 3.8 mmol/L (3.5-5.1); PROTEIN - SERUM 7.5 g/dL (6.4-8.2); SODIUM 137 mmol/L (136-145); UREA NITROGEN 10 mg/dL (7-18); eGFR NON AFRICAN AMERICAN 58 mL/min (90-120)
[2018-08-31 01:27] LABS: TROPONIN-I < 0.017 ng/mL (0.000-0.060)
--- NOTE | 2018-08-31 07:24 | NUR ---
HAND-OFF REPORT RECIEVED FROM OFF GOING NURSE GEOFFREY ABRAHAM. PT OBSERVED LYING IN BED, RESPIIRATIONS EVEN AND UNLABORED. O2 IN PLACE VIA NC AT 2LPM. PT ALERT AND ORIENTED. PT ASSISTED WITH USE OF BEDSIDE TOILET AND THEN BACK INTO BED. AHA BREAKFAST TRAY GIVEN ORDERED. CALL LIGHT IN REACH. PT DENIES ANY FURTHER NEEDS. WILL CONTINUE TO MONITOR.
--- NOTE | 2018-08-31 09:00 | NUR ---
PT LYING IN BED, RESTING WITH EYES CLOSED. NO SIGNS OF DISTRESS. CALL LIGHT IN REACH.
--- NOTE | 2018-08-31 09:31 | NUR ---
REQUESTED MEDICATIONS FROM PHARMACY THAT ARE NOT IN [facility], WILL ADMINISTER UPON ARRIVAL.
--- NOTE | 2018-08-31 11:10 | NUR ---
ORDERED LEVAQUIN INFUSION INITIATED AT 0934, COMPLETE AT 1105
--- NOTE | 2018-08-31 15:27 | MORECARE ---
CASE MANAGEMENT DISCHARGE SUMMARY PATIENT: CHUNG PILLAI UNIT: [id number] ADM DATE: 08/31/18 AGE: 72 : 44 SEX: F ROOM/BED: D.2229 AUTHOR: RANDOLPH WALTERS PHYSICIAN: REFERRING PHYSICIAN: KAYLAN LYNCH MD DATE OF SERVICE: 08/31/18 Discharge Plan Patient Name: HCUNG PILLAI Facility: [facility]:[place] : 1945 Planned Disposition: Home Anticipated Discharge Date: 09/02/18 Discharge Date: Expected LOS: 2 Initial Reviewer: [email or web address] Initial Review Date: 08/31/2018 Generated: 08/31/18 4:27 pm DCPIA - Discharge Planning Initial Assessment Updated by [email or web address]: Rubia Tuttle on 08/31/18 3:26 pm * Is the patient Alert and Oriented? Yes * How many steps to enter\exit or inside your home? two * PCP Dr. Paul * Pharmacy [facility] * Preadmission Environment Home with Family * ADLs Independent * Equipment Cane Rolling Walker * List name and contact numbers for known caregivers / representatives who currently or will assist patient after discharge: [facility] - [phone] * Verbal permission to speak to the caregivers and representatives has been obtained from the patient. Yes * Community resources currently utilized None * Additional services required to return to the preadmission environment? Yes * Can the patient safely return to the preadmission environment? Yes * Has this patient been hospitalized within the prior 30 days at any hospital? No Patient Name: CHUNG PILLAI Page [id number] at 1527 All edits/amendments must be made on the electronic document DICTATION DATE: 08/31/181525 AMUSEMENT CENTRE MANAGER: SUSAN 08/31/181525 RPT#: [id number] DC DATE: STATUS: ADM IN [facility] [address] [place] [address] END OF REPORT
--- NOTE | 2018-08-31 15:37 | MORECARE ---
CASE MANAGEMENT DISCHARGE SUMMARY PATIENT: CHUNG PILLAI UNIT: [id number] ADM DATE: 08/31/18 AGE: 72 : 44 SEX: F ROOM/BED: D.2229 AUTHOR: SELENADOC PHYSICIAN: REFERRING PHYSICIAN: KAYLAN LYNCH MD DATE OF SERVICE: 08/31/18 Discharge Plan Patient Name: CHUNG PILLAI Facility: [facility]:[place] : 1945 Planned Disposition: Home Anticipated Discharge Date: 09/02/18 Discharge Date: Expected LOS: 2 Initial Reviewer: [email or web address] Initial Review Date: 08/31/2018 Generated: 08/31/18 4:37 pm DCP- Discharge Planning Updated by [email or web address]: Rubia Tuttle on 08/31/18 2:[address] Patient Name: CHUNG PILLAI Admission Status: ER Accout number: [id number] Admission Date: 08-31-2018 : 1945 Admission Diagnosis: Attending: KAYLAN LYNCH Current LOS: 1 Anticipated DC Date: 09-02-2018 Planned Disposition: Home Primary Insurance: [facility] MEDICARE SOLUTIONS Discharge Planning Comments: CM met with patient to complete initial dc planning assessment. CM educated patient on the CM role and verbal consent given by patient to complete assessment. Patient lives at [facility] with her . At discharge patient plans to return home with her and feels this is a safe discharge. CM discussed availability of home health, rehab services, and medical equipment. Patient reports that Dr. Meraz's office is setting her up for Physical Therapy and Pulmonology Rheab outpatient. Patient denied known discharge needs at this time. CM will continue to follow and will assist as needed with dc plans/needs. Stapler Hand: Rubia Tuttle RN, [facility] DCPIA - Discharge Planning Initial Assessment Updated by [email or web address]: Rubia Tuttle on 08/31/18 3:26 pm * Is the patient Alert and Oriented? Yes * How many steps to enter\exit or inside your home? two * PCP Dr. Paul * Pharmacy [facility] [employer] [facility] * Preadmission Environment Home with Family * ADLs Independent * Equipment Cane Rolling Walker * List name and contact numbers for known caregivers / representatives who currently or will assist patient after discharge: Madhav Nevarez - [facility] - [phone] * Verbal permission to speak to the caregivers and representatives has been obtained from the patient. Yes * Community resources currently utilized None * Additional services required to return to the preadmission environment? Yes * Can the patient safely return to the preadmission environment? Yes * Has this patient been hospitalized within the prior 30 days at any hospital? No Last DP export: 08/31/18 2:27 p Patient Name: CHUNG PILLAI Page [id number] at 1537 All edits/amendments must be made on the electronic document DICTATION DATE: 08/31/181535 HELICOPTER CREW CHIEF: SUSAN 08/31/181535 RPT#: [id number] DC DATE: STATUS: [facility] [address] [place] [address] END OF REPORT
--- NOTE | 2018-08-31 16:48 | NUR ---
PATIENT ADMITTED TO ROOM 2229 FROM ER. VITALS STABLE. LUNGS CLEAR IN ALL RIOS BILATERALLY. HEART SOUNDS HEARD AT S1 AND S2 IN ALL RIOS. BOWEL SOUNDS HEARD X4. STATES NO PROBLEMS WITH BOWEL MOVENTS BUT SAYS "EVERY TIME I'M IN THE HOSPITAL I GET CONTIPATED." SKIN INTACT WITHOUT REDNESS. SKIN TEAR TO RIGHT ELBOW FROM FALL AT HOME PRIOR TO ER VISIT. COVERED WITH BANDAID. IV TO RIGHT HAND REMOVED D/T LEAKING. CATHETER INTACT. DENIES PAIN. DENIES NEEDS.
--- NOTE | 2018-08-31 17:20 | NUR ---
IV RESITED TO [facility]
--- NOTE | 2018-08-31 17:48 | NUR ---
RESTING IN BED. DENIES PAIN. DENIES NEEDS.
--- NOTE | 2018-08-31 18:11 | NUR ---
C/O PAIN 02/15. GIVEN PRN NORCO. WILL CONTINUE TO MONITOR.
--- NOTE | 2018-08-31 18:53 | NUR ---
RESTING IN BED. AT BEDSIDE. DENIES PAIN. DENIES NEEDS.
--- NOTE | 2018-08-31 20:00 | NUR ---
ALERT RESTING IN BED RESP UNLABOARED, REPORTS HAVING HEADACHE, IV INFUSING WITHOUT DIFFICULTY SEE SHIFT ASSESSMENT, CALL LIGHT IN REACH
[2018-09-01 00:40] VITALS: BP 90/54
[2018-09-01 04:47] VITALS: BP 107/54
[2018-09-01 05:27] LABS: BASOPHILS 0.1 % (0-2); EOSINOPHILS 0.4 % (0-7); HEMATOCRIT 37.3 % (36.0-48.0); HEMOGLOBIN 12.5 g/dL (12-16); IMMATURE GRANULOCYTES 0.4 % (0-5); MCH 31.3 pg (26.0-34.0); MCHC 33.5 g/dL (31.0-37.0); MCV 93.3 fL (80.0-100.0); MONOCYTES 7.6 % (2-11); NEUTROPHILS 84.5 % (40-80); PLATELET COUNT 209 10x3/uL (130-400); RDW 14.2 % (11.5-14.5)
[2018-09-01 05:31] LABS: WBC 14.1 10x3/uL (4.8-10.8)
[2018-09-01 05:50] LABS: ANION GAP 11.7 mmol/L (8-16); CALCIUM 8.1 mg/dL (8.5-10.1); CARBON DIOXIDE 26.7 mmol/L (21.0-32.0); CREATININE - SERUM 0.8 mg/dL (0.6-1.3); POTASSIUM - SERUM 3.4 mmol/L (3.5-5.1)
--- NOTE | 2018-09-01 08:00 | NUR ---
MORNING ASSESSMENT COMPLETE. SEE ASSESSMENT FLOWSHEET FOR FURTHER DETAILS. PT LYING IN BED AAO X4 TO PERSON, PLACE, TIME, AND SITUATION. C/O NECK AND MINA PAIN- WILL GIVE MED FOR COMFORT. DENIES FURTHER NEEDS AT THIS TIME. CL IN REACH. SIDE RAILS UP X3 FOR PATIENT SAEFTY. BED IN LOWEST POSITION.
[2018-09-01 09:19] VITALS: BP 123/52
[2018-09-01 12:43] VITALS: BP 100/53
[2018-09-01 16:14] VITALS: BP 96/48
--- NOTE | 2018-09-01 19:45 | NUR ---
20G IV SITED ON RIGHT FOREARM 1ST ATTEMPT. PATENT. PT TOLERATED WELL. WILL CONTINUE TO MONITOR.
[2018-09-01 21:02] VITALS: BP 123/57
--- NOTE | 2018-09-02 02:08 | NUR ---
I have reviewed this patient and I concur with the Shift Assessment completed by the Licensed Practical Nurse today this shift.
[2018-09-02 04:46] VITALS: BP 152/70
[2018-09-02 06:33] LABS: BASOPHILS 0 % (0-2); EOSINOPHILS 0.1 % (0-7); HEMATOCRIT 34.4 % (36.0-48.0); HEMOGLOBIN 11.7 g/dL (12-16); IMMATURE GRANULOCYTES 0.3 % (0-5); LYMPHOCYTES 11.4 % (15-50); MCH 31.5 pg (26.0-34.0); MCV 92.5 fL (80.0-100.0); MEAN PLATELET VOLUME 9.8 fL (7.4-10.4); MONOCYTES 6.9 % (2-11); NEUTROPHILS 81.3 % (40-80); PLATELET COUNT 210 10x3/uL (130-400); RBC 3.72 10x6/uL (4.00-5.40); RDW 14.1 % (11.5-14.5); WBC 11.4 10x3/uL (4.8-10.8)
[2018-09-02 06:45] LABS: CALC OSMOLALITY 274 mosm/kg (275-300); CALCIUM 8.2 mg/dL (8.5-10.1); CARBON DIOXIDE 25.5 mmol/L (21.0-32.0); CHLORIDE - SERUM 105 mmol/L (98-107); CREATININE - SERUM 0.7 mg/dL (0.6-1.3); GLUCOSE 103 mg/dL (74-106); POTASSIUM - SERUM 3.9 mmol/L (3.5-5.1); SODIUM 138 mmol/L (136-145); eGFR NON AFRICAN AMERICAN 87 mL/min (90-120)
[2018-09-02 06:52] LABS: UREA NITROGEN 10 mg/dL (7-18)
[2018-09-02 09:35] VITALS: BP 114/63
[2018-09-02] MEDS ORDERED: LEVAQUIN750 MG PO (10:52)
[2018-09-02] MEDS ORDERED: PREDNISONE10 MG PO (10:52)
--- NOTE | 2018-09-02 12:17 | MORECARE ---
CASE MANAGEMENT DISCHARGE SUMMARY PATIENT: CHUNG PILLAI UNIT: [id number] ADM DATE: 08/31/18 AGE: 72 : 44 SEX: F ROOM/BED: D.2229 AUTHOR: SELENADOC PHYSICIAN: REFERRING PHYSICIAN: KAYLAN LYNCH MD DATE OF SERVICE: 09/02/18 Discharge Plan Patient Name: CHUNG PILLAI Facility: [facility]:[place] : 1945 Planned Disposition: Home Anticipated Discharge Date: 09/02/18 Discharge Date: Expected LOS: 2 Initial Reviewer: [email or web address] Initial Review Date: 08/31/2018 Generated: 09/02/18 1:17 pm DCP- Discharge Planning Updated by [email or web address]: Rubia Tuttle on 08/31/18 2:[address] Patient Name: CHUNG PILLAI Admission Status: ER Accout number: [id number] Admission Date: 08-31-2018 : 1945 Admission Diagnosis: Attending: KAYLAN LYNCH Current LOS: 1 Anticipated DC Date: 09-02-2018 Planned Disposition: Home Primary Insurance: [facility] MEDICARE SOLUTIONS Discharge Planning Comments: CM met with patient to complete initial dc planning assessment. CM educated patient on the CM role and verbal consent given by patient to complete assessment. Patient lives at [facility] with her . At discharge patient plans to return home with her and feels this is a safe discharge. CM discussed availability of home health, rehab services, and medical equipment. Patient reports that Dr. Meraz's office is setting her up for Physical Therapy and Pulmonology Rheab outpatient. Patient denied known discharge needs at this time. CM will continue to follow and will assist as needed with dc plans/needs. Research Coordinator: Rubia Tuttle RN, [facility] DCPIA - Discharge Planning Initial Assessment Updated by [email or web address]: Rubia Tuttle on 08/31/18 3:26 pm * Is the patient Alert and Oriented? Yes * How many steps to enter\exit or inside your home? two * PCP Dr. Paul * Pharmacy [facility] [employer] * Preadmission Environment Home with Family * ADLs Independent * Equipment Cane Rolling Walker * List name and contact numbers for known caregivers / representatives who currently or will assist patient after discharge: Madhav Nevarez - [facility] - [phone] * Verbal permission to speak to the caregivers and representatives has been obtained from the patient. Yes * Community resources currently utilized None * Additional services required to return to the preadmission environment? Yes * Can the patient safely return to the preadmission environment? Yes * Has this patient been hospitalized within the prior 30 days at any hospital? No External Providers External Provider: [facility] Contact Date: Service Request Date: Service Type: Resolution: Reviewer: Comments: Last DP export: 08/31/18 2:37 p Patient Name: CHUNG PILLAI Page 56513 at 1217 All edits/amendments must be made on the electronic document DICTATION DATE: 09/02/18 1216 LEAD INSTALLER: SUSAN 09/02/18 1216 RPT#: [id number] DC DATE: STATUS: ADM IN [facility] [address] [place] [address] END OF REPORT
--- NOTE | 2018-09-02 12:26 | MORECARE ---
CASE MANAGEMENT DISCHARGE SUMMARY PATIENT: CHUNG PILLAI UNIT: [id number] ADM DATE: 08/31/18 AGE: 72 : 44 SEX: F ROOM/BED: D.2229 AUTHOR: RANDOLPH WALTERS PHYSICIAN: REFERRING PHYSICIAN: KAYLAN LYNCH MD DATE OF SERVICE: 09/02/18 Discharge Plan Patient Name: CHUNG PILLAI Facility: [facility]:[place] : 1945 Planned Disposition: Home Anticipated Discharge Date: 09/02/18 Discharge Date: Expected LOS: 2 Initial Reviewer: [email or web address] Initial Review Date: 08/31/2018 Generated: 09/02/18 1:26 pm Comments DCP- Discharge Planning Updated by [email or web address]: Dian Deja on 09/02/18 11:[address] Received order for discharge. She is going home today, her will pick her up. She denies need for home health services. She has oxygen and nebulizer from [facility]. States she would like a standard walker. States she has a rollator walker that was given to her but wants a walker without wheels for when outside. I notifed Elmer at [facility] and faxed order. CM will continue to follow and assist with discharge planning/needs. DCP- Discharge Planning Updated by [email or web address]: Rubia Tuttle on 08/31/18 2:[address] Patient Name: CHUNG PILLAI Admission Status: ER Accout number: [id number] Admission Date: 08-31-2018 : 1945 Admission Diagnosis: Attending: KAYLAN LYNCH Current LOS: 1 Anticipated DC Date: 09-02-2018 Planned Disposition: Home Primary Insurance: [facility] MEDICARE SOLUTIONS Discharge Planning Comments: CM met with patient to complete initial dc planning assessment. CM educated patient on the CM role and verbal consent given by patient to complete assessment. Patient lives at [facility] with her . At discharge patient plans to return home with her and feels this is a safe discharge. CM discussed availability of home health, rehab services, and medical equipment. Patient reports that Dr. Meraz's office is setting her up for Physical Therapy and Pulmonology Rhe[facility] outpatient. Patient denied known discharge needs at this time. CM will continue to follow and will assist as needed with dc plans/needs. Anode Builder: Rubia Tuttle RN, [facility] DCPIA - Discharge Planning Initial Assessment Updated by [email or web address]: Rubia Tuttle on 08/31/18 3:26 pm * Is the patient Alert and Oriented? Yes * How many steps to enter\exit or inside your home? two * PCP Dr. Paul * Pharmacy [facility] * Preadmission Environment Home with Family * ADLs Independent * Equipment Cane Rolling Walker * List name and contact numbers for known caregivers / representatives who currently or will assist patient after discharge: Madhav Nevarez [facility] - [phone] * Verbal permission to speak to the caregivers and representatives has been obtained from the patient. Yes * Community resources currently utilized None * Additional services required to return to the preadmission environment? Yes * Can the patient safely return to the preadmission environment? Yes * Has this patient been hospitalized within the prior 30 days at any hospital? No Last DP export: 09/02/18 11:17 a Patient Name: CHUNG PILLAI Page 15891 at 1226 All edits/amendments must be made on the electronic document DICTATION DATE: 09/02/181225 MANAGER TECHNICAL SUPPORT: SUSAN 09/02/186 RPT#: [id number] DC DATE: STATUS: ADM IN [facility] [address] [place] [address] END OF REPORT
[2018-09-02 13:24] VITALS: BP 127/73
--- NOTE | 2018-09-02 13:45 | NUR ---
PATIENT RECIEVED DC INSTRUCTIONS AT THIS TIME WITH NO QUESTIONS. NOTIFIED MEDS CALLED INTO PHARMACY. VERBALIZED UNDERSTANDING. IV REMOVED WITH CATH TIP INTACT. AWAITING TRANSPORTATION FOR DC. CALL LIGHT WITHIN REACH.
--- NOTE | 2018-09-02 14:10 | NUR ---
PATIENT ESCORTED OUT OF HOSPITAL VIA WC WITH PERSONAL BELONGINGS TO PRIVATE VEHICLE WITH PERSONAL BELONGINGS BY HOSPITAL VOLUNTEERS.
== END 2018-09-02 14:10 | disposition home or self-care (01) | DRG 872 ==
LOC: D.ER 23:39 → D.MS 08-31 03:38 → D.EDHOLD 08-31 03:38 → D.MS 08-31 15:25
PROVIDERS: Family Medicine; ADMIT Internal Medicine Nephrology; ATTEND Internal Medicine Nephrology
DX: A41.9 Sepsis, unspecified organism (principal); N39.0 Urinary tract infection, site not specified; J44.1 Chronic obstructive pulmonary disease with (acute) exacerbation; I10 Essential (primary) hypertension

== ENCOUNTER → 2018-11-24 14:40 | Outpatient (CLI) | payer MEDICARE ==
[2018-08-31 09:13] VITALS: BMI 30.4
== END | disposition home or self-care (01) ==
LOC: D.RT 11-05 14:00
PROVIDERS: ATTEND Internal Medicine Pulmonary Disease
DX: J44.9 Chronic obstructive pulmonary disease, unspecified (principal)

== ENCOUNTER → 2019-07-29 16:39 | Outpatient (CLI) | payer MEDICARE ==
[2018-08-31 09:13] VITALS: BMI 30.4
== END | disposition home or self-care (01) ==
LOC: D.LABREF 16:39
PROVIDERS: ATTEND Urology
DX: N39.0 Urinary tract infection, site not specified (principal)

== ENCOUNTER → 2019-10-05 08:42 | Outpatient (CLI) | payer MEDICARE ==
[2018-08-31 09:13] VITALS: BMI 30.4
== END | disposition home or self-care (01) ==
LOC: D.MAMMO 10-03 09:00 → D.US 10-03 09:30 → D.MAMMO 10-03 13:00
PROVIDERS: ATTEND Family Medicine Adult Medicine
DX: N63.25 Unspecified lump in the left breast, overlapping quadrants (principal)